=== PATIENT | female | born 1975 | race American Indian/Alaskan Native ===

== ENCOUNTER 2018-04-30 09:59 | Outpatient (CLI) | payer OTHER ==
--- NOTE | 2018-04-30 11:59 | Ultrasound Report ---
LEFT DIGITAL DIAGNOSTIC MAMMOGRAM N. LEFT BREAST ULTRASOUND: 04/30/18 09:59:00 CLINICAL: Recalled for asymmetry. COMPARISON:02/28/18 screening FINDINGS: ML, repeat MLO and spot compression MLO views were performed. Near complete effacement of asymmetry on the spot image. The other views are negative. Ultrasound of the upper outer left breast was performed and demonstrated normal fibroglandular and fatty structures. No mass, cyst or shadowing. An intramammary lymph node at 3 o'clock 11 cm from the nipple has benign morphology and measures 7 x 6 x 4 mm. IMPRESSION: Negative mammogram and negative left breast ultrasound. BI-RADS CATEGORY: 1 -- Negative RECOMMENDATION: Routine mammographic screening in one year. ACR BI-RADS MAMMOGRAPHIC CODES: 0 = Needs additional imaging evaluation; 1 = Negative; 2 = Benign; 3 = Probably benign; 4 = Suspicious; 5 = Malignant; 6 = Known biopsy-proven malignancy COMMENT: 1. Dense breast tissue, i.e., adenosis, fibrocystic changes, etc., may obscure an underlying neoplasm. 2. Approximately 10% of cancers are not detected with mammography. 3. A negative mammography report should not delay biopsy if a clinically suspicious mass is present. COMMENT: Patient follow-up letters are generated via our [employer] application.
== END 2018-04-30 10:00 | disposition home or self-care (01) ==
LOC: SPVWC 09:59
PROVIDERS: ATTEND Family Medicine
DX: R92.8 Other abnormal and inconclusive findings on diagnostic imaging of breast (principal)

== ENCOUNTER 2019-05-14 09:23 | Outpatient (CLI) | payer OTHER ==
--- NOTE | 2019-05-14 10:38 | Mammography Report ---
DIGITAL SCREENING MAMMOGRAM WITH CAD, 05/14/2019 INDICATION: Routine screening mammography. TECHNIQUE: Digital bilateral 2D mammography was obtained in the craniocaudal and mediolateral obliq ue projections. This examination was interpreted with the benefit of Computer-Aided Detection analysi s. COMPARISON: 02/28/2018 FINDINGS: Breast Density: There are scattered areas of fibroglandular density. There is no evidence of dominant mass, suspicious calcifications or architectural distortion in eithe r breast. IMPRESSION: No mammographic evidence of malignancy. Follow up recommendation: Routine yearly BI-RADS Category 1: Negative. A "normal" or negative report should not discourage follow up or biopsy of a clinically significant f inding. A written summary of these findings will be mailed to the patient. The patient will be entered into a mammography reporting system which will generate a reminder letter for the patient's next appointmen t at the appropriate interval. The [employer] recommends yearly mammograms starting at age 40 and continuing as l luis as a woman is in good health. Breast MRI is recommended for women with an approximate 20-25% or greater lifetime risk of breast cancer, including women with a strong family history of breast or ova leeann cancer or who have been treated for Hodgkin's disease. Signer Name: Christopher Whittaker MD Signed: 05/14/2019 10:34 AM Workstation Name: [id number]
== END 2019-05-14 09:24 | disposition home or self-care (01) ==
LOC: SPVWC 09:23
PROVIDERS: ATTEND Family Medicine
DX: Z12.31 Encounter for screening mammogram for malignant neoplasm of breast (principal); N64.89 Other specified disorders of breast
CPT/HCPCS: 77067

== ENCOUNTER 2021-01-10 11:06 | Outpatient (CLI) | payer OTHER ==
--- NOTE | 2021-01-10 14:35 | Mammography Report ---
DIGITAL SCREENING MAMMOGRAM WITH CAD, 01/10/2021 CLINICAL INFORMATION / INDICATION: Routine screening mammography. SCREENING MAMMO Z12.31 TECHNIQUE: Digital bilateral 2D mammography was obtained in the craniocaudal and mediolateral obliqu e projections. This examination was interpreted with the benefit of Computer-Aided Detection analysis . COMPARISON: 02/28/2018 through 05/14/2019. FINDINGS: Breast Density: There are scattered areas of fibroglandular density. No dominant mass, suspicious calcifications, or architectural distortion in either breast. IMPRESSION: No mammographic evidence of malignancy. Follow up recommendation: Routine yearly BI-RADS Category 1: Negative. A "normal" or negative report should not discourage follow up or biopsy of a clinically significant f inding. A written summary of these findings will be mailed to the patient. The patient will be entered into a mammography reporting system which will generate a reminder letter for the patient's next appointmen t at the appropriate interval. The [employer] recommends yearly mammograms starting at age 40 and continuing as l luis as a woman is in good health. Breast MRI is recommended for women with an approximate 20-25% or greater lifetime risk of breast cancer, including women with a strong family history of breast or ova leeann cancer or who have been treated for Hodgkin's disease. Signer Name: Navneet Coburn MD Signed: 01/10/2021 2:30 PM Workstation Name: [id number]
== END 2021-01-10 11:07 | disposition home or self-care (01) ==
LOC: SPVWC 11:06
PROVIDERS: ATTEND Family Medicine
DX: Z12.31 Encounter for screening mammogram for malignant neoplasm of breast (principal)
CPT/HCPCS: 77067

== ENCOUNTER 2021-08-05 10:15 | Outpatient (CLI) | payer OTHER ==
--- NOTE | 2021-08-05 11:08 | Mammography Report ---
DIGITAL DIAGNOSTIC MAMMOGRAM WITH CAD , 08/05/2021 CLINICAL INFORMATION / INDICATION: 45-year-old patient who is complaining of lumpiness throughout the entire right breast. TECHNIQUE: Digital right mammographic imaging was performed. This examination was interpreted with the benefit of Computer-aided Detection analysis. COMPARISON: Prior mammograms including 05/14/2019, 01/10/2021 FINDINGS: Breast Density: The breasts are almost entirely fatty. No dominant mass, suspicious calcifications or architectural distortion in the right breast. Overall, no interval change or significant finding throughout the right breast. IMPRESSION: No mammographic evidence of malignancy. Clinical correlation for right breast lumpiness. Follow up recommendation: Back to schedule. BI-RADS Category 1: NEGATIVE. A "normal" or negative report should not discourage follow up or biopsy of a clinically significant f inding. A written summary of these findings will be mailed to the patient. The patient will be entered into a mammography reporting system which will generate a reminder letter for the patient's next appointmen t at the appropriate interval. According to the [employer], yearly mammograms are recommended starting at age 40 and continuing as long as a woman is in good health. Breast MRI is recommended for women with an ant[place] roximately 20-25% or greater lifetime risk of breast cancer, including women with a strong family his tory of breast or ovarian cancer and women who have been treated for Hodgkin's disease. Signer Name: Teena Oh MD Signed: 08/05/2021 11:03 AM Workstation Name: [id number]
== END 2021-08-05 10:16 | disposition home or self-care (01) ==
LOC: MAMMO 10:15
PROVIDERS: ATTEND Family Medicine
DX: N63.10 Unspecified lump in the right breast, unspecified quadrant (principal)